=== PATIENT | male | born 2000 | race Caucasian/White ===

== ENCOUNTER 2022-01-08 08:22 | Day surgery (SDC) | payer BC ==
[2022-01-06 17:16] VITALS: BMI 25.8
[2022-01-08] MEDS ORDERED: EPINEPHrine 1:1,000 1,000 MCG/ML ML ONE (11:00)
[2022-01-08] MEDS ORDERED: BUPIVACAINE HCL/PF 2.5 MG/ML - 30 ML VIAL IJ ONE (11:00)
[2022-01-08] MEDS ORDERED: PROPOFOL 20 ML ONE (11:14)
[2022-01-08] MEDS ORDERED: MIDAZOLAM HCL 2 MG/2 ML SINGLE DOSE VIAL ONE (11:14)
[2022-01-08] MEDS ORDERED: DEXAMETHASONE SOD PHOSPHATE 4 MG/1 ML VIAL ONE (12:02)
[2022-01-08] MEDS ORDERED: ONDANSETRON 4 MG/2 ML VIAL ONE (12:02)
[2022-01-08] MEDS ORDERED: ceFAZolin SODIUM 1 GM VIAL ONE (12:08)
[2022-01-08] MEDS ORDERED: KETOROLAC TROMETHAMINE 30 MG/1 ML VIAL IVPUSH PRN (12:43)
[2022-01-08] MEDS ORDERED: ONDANSETRON 4 MG/2 ML VIAL IVPUSH PRN (12:43)
[2022-01-08] MEDS ORDERED: ACETAMINOPHEN 325 MG TABLET (FP) PO PRN (12:43)
[2022-01-08] MEDS ORDERED: oxyCODONE HCL 5 MG TABLET PO PRN (12:43)
[2022-01-08] MEDS ORDERED: LACTATED RINGERS SOLUTION 1,000 ML IV SCH (12:45)
[2022-01-08] MEDS ORDERED: KETOROLAC TROMETHAMINE 30 MG/1 ML VIAL ONE (12:55)
[2022-01-08 13:32] VITALS: TEMP 97.5
[2022-01-08 13:49] VITALS: BP 110/63; PULSE 67
== END 2022-01-08 14:00 | disposition home or self-care (01) ==
LOC: FASU 08:22
PROVIDERS: ATTEND Orthopaedic Surgery
PROC: 0SBC4ZZ Excision of Right Knee Joint, Percutaneous Endoscopic Approach (ICD-10-PCS; principal; 2022-01-08 12:15)
DX: S83.281A Other tear of lateral meniscus, current injury, right knee, initial encounter (principal); X58.XXXA Exposure to other specified factors, initial encounter; Y93.9 Activity, unspecified; Y92.9 Unspecified place or not applicable
CPT/HCPCS: 94760